=== PATIENT | male | born 2005 | race Caucasian/White ===

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

== ENCOUNTER 2025-07-08 17:35 | Emergency (ER) | payer OTHER, SELFPAY ==
[2025-07-08 17:45] VITALS: BP 134/77; PULSE 68; RESP 18; TEMP 36.4; O2SAT 99
--- NOTE | 2025-07-08 17:56 | XRR_ITS ---
PROCEDURE INFORMATION: Exam: XR Right Ankle Exam date and time: 07/08/2025 6:02 PM Age: 19 years old Clinical indication: Injury or trauma; Fall; Sprain or strain; Right; Injury date: Today; Injury details: Twisted ankle stepping out of truck missed step TECHNIQUE: Imaging protocol: Radiologic exam of the right ankle. Views: 3 or more views. COMPARISON: No relevant prior studies available. FINDINGS: Bones/joints: Normal. Soft tissues: Normal. XR/XR ankle RT min 3V* [id number] IMPRESSION: No acute findings.
--- NOTE | 2025-07-08 18:33 | XRR_ITS ---
PROCEDURE INFORMATION: Exam: XR Right Foot Exam date and time: 07/08/2025 6:35 PM Age: 19 years old Clinical indication: Injury or trauma; Fall; Sprain or strain and swelling (edema); Foot; Right; Ankle TECHNIQUE: Imaging protocol: Radiologic exam of the right foot. Views: 3 or more views. COMPARISON: CR (LOW EXM, ) 07/08/2025 6:02 PM FINDINGS: Bones/joints: Normal. Soft tissues: Normal. XR/XR foot RT min 3V* [id number] IMPRESSION: No acute findings.
--- NOTE | 2025-07-08 19:06 | ED_ITS ---
HPI - Extremity Problem General: Chief complaint: Extremity Injury, Lower Stated complaint: right ankle pain Time Seen by Provider: 07/08/25 17:52 History of Present Illness: Patient is a 89-year-old gentleman that presented to ED after missing a step and falling outside his truck. He complains of medial right foot/ankle pain. Associated symptoms: Deny chest pain, fever(s) or rash Related Data Home Medications ?Medication ?Instructions ?Recorded ?Confirmed dextroamphetamine-amphetamine 20 20 mg PO BID 02/15/24 03/06/24 mg tablet (Adderall) sertraline 50 mg tablet (Zoloft) 50 mg PO DAILY 03/06/24 Allergies Allergy/AdvReac Type Severity Reaction Status Date / Time meningococcal vaccine A and C Allergy ALGY-Difficulty Verified 07/08/25 17:47 Breathing Tetanus Vaccines and Toxoid Allergy ALGY-Difficulty Verified 07/08/25 17:47 Breathing Review of Systems General: Reports: 10 or more systems reviewed and unremarkable except in HPI and below Const: Denies: fever(s) or chills Eyes: Denies: change in vision or blurry vision ENMT: Reports: throat pain Card: Denies: chest pain or palpitations Resp: Denies: dyspnea or non-productive cough GI: Denies: abdominal pain, nausea or vomiting : Denies: flank pain or difficulty urinating Musc: Reports: extremity pain, extremity swelling, joint pain and joint swelling; Denies: neck pain Skin/Breast: Denies: rash or pruritus Neuro: Denies: headache(s) or numbness in extremities Psych: Denies: anxiety or depression PFS ED PFSH: Social History Smoking and tobacco/nicotine status: never used tobacco/nicotine Alcohol intake: never Substance/Drug Use: never Physical Exam Const: COMMON NORMALS: no acute distress, average body habitus and patient oriented x3 GENERAL APPEARANCE: cooperative, comfortable, well kempt and well developed ORIENTATION/CONSCIOUSNESS: Yes awake HENMT: COMMON NORMALS: normocephalic and atraumatic HEAD & SCALP: normocephalic and atraumatic Neck/C-Spine: COMMON NORMALS: full ROM and no lymphadenopathy Lymph: LYMPHATIC: no lymphadenopathy noted Chest: COMMONS NORMALS: normal inspection of the chest Cardio: COMMON NORMALS: regular rate and regular rhythm RATE: regular rate RHYTHM: regular rhythm GI: COMMON NORMALS: Normal to inspection, nondistended, normoactive bowel sounds present and Soft to palpation PALPATION: Yes Soft to palpation : COMMON NORMALS: Yes no CVA tenderness BLADDER/KIDNEY EXAM: Yes no CVA tenderness Back/Pelvis: COMMON NORMALS: no CVA tenderness Extremity: COMMON NORMALS: normal to inspection and no pedal edema (minimal medially) RIGHT LOWER EXTREMITY: Yes lower leg Right lower leg: Yes palpation (Pain medial meds that, as well as pain medially on superior extensor ) and Yes other (Pain with superior reticulum palpation medially) Neuro: COMMON NORMALS: patient oriented x3 Psych: APPEARANCE: Yes well kempt Skin: COMMON NORMALS: no rashes or lesions noted and no wounds GENERAL SKIN EXAM: no rashes or lesions noted Course Vital Signs: Vital signs: Vital Signs Temperature 97.6 F 07/08/25 17:45 Pulse Rate 59 L 07/08/25 19:33 Respiratory Rate 18 07/08/25 17:45 Blood Pressure 118/60 07/08/25 19:33 Pulse Oximetry 100 07/08/25 19:33 MDM - Extremity (Nontraumatic) Medical Decision Making Patient has negative x-ray of foot and ankle, however on physical examination has minimal swelling on this medial superior extensor reticulum with further concern of higher ankle sprain. I will place him in a ankle splint, he will continue to wear his steel and calcaneus boot to work, and call next week for follow-up with orthopedist. Patient states understanding of my concern of a higher ankle sprain even though his complaints are more medial mid foot consistent with more of a hAlagus longus sprain of the right foot. All of his questions answered and understanding. He will utilize Tylenol, and ibuprofen for pain. Lab Data Radiology Impressions Ankle X-Ray 07/08/25 17:56 IMPRESSION: No acute findings. Foot X-Ray 07/08/25 18:33 IMPRESSION: No acute findings. All radiology interpretation(s) finalized by discharge Discharge Plan Discharge Patient Disposition: Home Clinical Impression: Right ankle sprain Qualifiers: Encounter type: initial encounter Involved ligament of ankle: calcaneofibular ligament Qualified Code(s): S93.411A - Sprain of calcaneofibular ligament of right ankle, initial encounter Condition: Stable Prescriptions: No Action sertraline [Zoloft] 50 mg tablet 50 mg PO DAILY dextroamphetamine-amphetamine [Adderall] 20 mg tablet 20 mg PO BID Rx Instructions: administer doses at least 4-6 hours apart Discharge Orders: Discharge ED (Routine); Ordered 07/08/25 Ordered By: Ginger Gonzalez Referrals: Arnaud Goldstein DO [Physician, Orthopedics] Faby Mejía DO [Primary Care Provider, Family Practice] Discharge Diet: Usual diet Discharge Activity: Limit activity as instructed Patient Instructions: Ankle Strain (ED), Patient Portal & Nina Instructions Activity Restrictions/Additional Instructions: Wear ankle strap and ice x 2 weeks Tylenol and ibuprofen taken together every 6 hours as best for pain Increase activity as tolerated Given concern of higher ankle sprain, call orthopedics tomorrow for follow-up in 1 week and reevaluation. Referral has been made above. Return to ED for worsening pain, redness, temperature 100.4 ?F Stand Alone Forms: Work/School Release Print Language: [place] Coding Level of Care Code ED Electronics Department Manager for [employer]
[2025-07-08 19:33] VITALS: BP 118/60; PULSE 59; O2SAT 100
--- OUTSIDE RECORDS SUMMARY | 2025-07-09 18:19 | XMS_ITS | Encounter Summary ---
Author Organization [facility] Address [address] [place] [address] Care Team Providers Care Teaching Associate Name Role Phone Faby Mejía DO Primary Care Provider Encounter Details Date Type Department Care Team (Latest Contact Info) Description 12/11/2006 Outpatient Historical [facility] Medicine [place] [address] [facility] [address] [place] [phone] Jessika Alcazar NP NO ADDRESS ON FILE Acute Pharyngitis (Primary Dx); Acute Bronchitis; Respirat Syncytial Virus Social History Tobacco Use Types Packs/Day Years Used Date Smoking Tobacco: Never Assessed Sex and Gender Information Value Date Recorded Sex Assigned at Not on file Legal Sex Male 4:08 AM FULL TIME Gender Identity Not on file Sexual Orientation Not on file documented as of this encounter Plan of Treatment Not on file documented as of this encounter Visit Diagnoses Diagnosis Acute pharyngitis- Primary Acute bronchitis Respirat syncytial virus Respiratory syncytial virus (RSV) documented in this encounter Care Teams Teaching Associate Relationship Specialty Start Date End Date Faby Mejía DO [address] [place] [address] PCP - General Family Practice 03/20/13 documented as of this encounter
--- OUTSIDE RECORDS SUMMARY | 2025-07-09 18:19 | XMS_ITS | Encounter Summary ---
Author Organization [facility] Address [address] [place] [address] Care Team Providers Care Freight And Passenger Agent Name Role Phone Faby Mejía DO Primary Care Provider Encounter Details Date Type Department Care Team (Latest Contact Info) Description 08/31/2006 Outpatient Historical 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
--- OUTSIDE RECORDS SUMMARY | 2025-07-09 18:19 | XMS_ITS | Encounter Summary ---
Author Organization [facility] Address [address] [place] [address] Care Team Providers Care Mold Carpenter Name Role Phone Faby Mejía DO Primary Care Provider Encounter Details Date Type Department Care Team (Latest Contact Info) Description 12/18/2006 Outpatient Historical [facility] Medicine [place] [address] [facility] [address] [place] [phone] Jessika Alcazar NP NO ADDRESS ON FILE Respirat Syncytial Virus (Primary Dx); Unspecified Conjunctivitis Social History Tobacco Use Types Packs/Day Years Used Date Smoking Tobacco: Never Assessed Sex and Gender Information Value Date Recorded Sex Assigned at Not on file 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
--- OUTSIDE RECORDS SUMMARY | 2025-07-09 18:20 | XMS_ITS | Encounter Summary ---
Author Organization [facility] Address [address] [place] [address] Care Team Providers Care Brake Lining Curer Name Role Phone Faby Mejía DO Primary Care Provider [phone] Encounter Details Date Type Department Care Team (Late st Contact Info) Description 07/02/2025 External Device Data [facility] ABSTRACTION Provider, Abstract NO ADDRESS ON FILE Social History Tobacco Use Types Packs/Day Years Used Date Smoking Tobacco: Never Passive Smoke Exposure: Never Smokeless Tobacco: Never Alcohol Use Standard Drinks/Week Comments Never 0 (1 standard drink = 0.6 oz pur e alcohol) Sex and Gender Information Value Date Recorded Sex Assigned at Not on file 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
--- OUTSIDE RECORDS SUMMARY | 2025-07-09 18:20 | XMS_ITS | Encounter Summary ---
Author Organization [facility] Address [address] [place] [address] Care Team Providers Care Timing Machine Operator Name Role Phone Faby Mejía DO Primary Care Provider Encounter Details Date Type Department Care Team (Latest Contact Info) Description 08/01/2006 Outpatient Historical [facility] Family Medicine [place] [address] [facility] [address] [place] [phone] Jessika Alcazar NP NO ADDRESS ON FILE Acute Pharyngitis (Primary Dx); Teething Syndrome Social History Tobacco Use Types Packs/Day Years Used Date Smoking Tobacco: Never Assessed Sex and Gender Information Value Date Recorded Sex Assigned at Not on file 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
--- OUTSIDE RECORDS SUMMARY | 2025-07-09 18:20 | XMS_ITS | Encounter Summary ---
Author Organization [facility] Address [address] [place] [address] Care Team Providers Care Sewer And Inspector Name Role Phone Faby Mejía Primary Care Provider Encounter Details Date Type Department Care Team (Late st Contact Info) Description 06/17/2008 Outpatient Historical [facility] Services [address] 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 Gender Identity Not on file Sexual Orientation Not on file documented as of this encounter Plan of Treatment Not on file documented as of this encounter Procedures Procedure Name Priority Date/Time Associated Diagnosis Comments XR UPR GI W ESOPHOGRAM Routine 06/26/2008 8:43 AM CDT US RENAL Routine 06/26/2008 8:20 AM CDT documented in this encounter Results * XR UPR GI W ESOPHOGRAM (06/26/2008 8:43 AM CDT) Anatomical Region Laterality Modality Abdomen Other 06/26/2008 8:43 AM CDT Narrative 06/26/2008 3:10 PM CDT Exam: Upper GI/Esophagram Date/Time of Exam: Jun 26, 2008 8:43:29 AM History: vomiting. Comparison: None. Findings: The images and findings were reviewed with Dr. Loving prior to the time of dictation. Patient was given barium from a cup. AP and lateral views of the esophagus show no stricture, fistula, or abnormal vascular impression. The stomach is grossly unremarkable. The gastric outlet, pylorus, and duodenal sweep are within normal limits. Ligament of Treitz in normal position to the left the spine. Impression: Unremarkable pediatric upper GI. - Dictated By: Rogelio Sauer Electronically Signed By: Broderick Loving M.D. Date Signed: 06/26/08 Procedure Note Broderick Loving W - 06/26/2008 Exam: Upper GI/Esophagram Date/Time of Exam: Jun 26, 2008 8:43:29 AM History: vomiting. Comparison: None. Findings: The images and findings were reviewed with Dr. Loving prior tothe time of dictation. Patient was given barium from a cup. AP and lateral views of the esophagusshow no stricture, fistula, or abnormal vascular impression. The stomach is grossly unremarkable. Thegastric outlet, pylorus, and duodenal sweep are within normal limits. Ligament of Treitz in normalposition to the left the spine. Impression: Unremarkable pediatric upper GI. - Dictated By: Rogelio Sauer Electronically Signed By: Broderick Loving M.D. Date Signed: 06/26/08 us Ezio Boyd MD DIAGNOSTIC IMAGING ORDERABL ES Final Result * US RENAL (06/26/2008 8:20 AM CDT) Anatomical Region Laterality Modality Abdomen Other 06/26/2008 8:20 AM CDT Narrative 06/26/2008 9:07 PM CDT Bilateral Renal Ultrasound Jun 26, 2008 8:20:56 AM . Comparisons: None. Clinical History: Vomiting. Findings: Right kidney measures 6.7 cm in length while the left kidney measures 6.4 cm in length. There is no evidence for hydronephrosis, solid renal mass, renal calculi or perinephric fluid collections. Impressions: 1. Unremarkable bilateral renal ultrasound. - Dictated By: Charanjit Franco M.D., Ph.D. Electronically Signed By: Charanjit Franco M.D., Ph.D. Date Signed: 06/26/08 [facility] Procedure Note Charanjit Franco - 06/26/2008 Bilateral Renal Ultrasound Jun 26, 2008 8:20:56 AM . Comparisons: None. Clinical History: Vomiting. Findings: Right kidney measures 6.7 cm in length while the left kidneymeasures 6.4 cm in length. There is no evidence for hydronephrosis, solid renal mass, renal calculi orperinephric fluid collections. Impressions: 1. Unremarkable bilateral renal ultrasound. - Dictated By: Charanjit Franco M.D., Ph.D. Electronically Signed By: Charanjit Franco M.D., Ph.D. Date Signed: 06/26/08 [facility] Ezio Boyd MD ORDERABLES Final Resul t documented in this encounter Visit Diagnoses Not on filedocumented in this encounter Care Teams Sewer And Inspector Relationship Specialty Start Date End Date Faby Mejía DO [address] [place] [address] PCP - General Family Practice 03/20/13 documented as of this encounter
--- OUTSIDE RECORDS SUMMARY | 2025-07-09 18:20 | XMS_ITS | Encounter Summary ---
Author Organization [facility] Address [address] [place] [address] Care Team Providers Care Skinner Pelts Name Role Phone Faby Mejía DO Primary Care Provider [phone] Encounter Details Date Type Department Care Team (Latest Contact Info) Description 08/08/2006 Outpatient Historical [facility] Family Medicine [place] [address] [facility] [address] [place] [address] Lynn Anders, ALIGNMENT SPECIALIST [address] [place] [address] Cellulitis and Abscess of Upper Arm and Forearm (Primary Dx) Social History Tobacco Use Types Packs/Day Years Used Date Smoking Tobacco: Never Assessed Sex and Gender Information Value Date Recorded Sex Assigned at Not on file 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
--- OUTSIDE RECORDS SUMMARY | 2025-07-09 18:20 | XMS_ITS | Encounter Summary ---
Author Organization 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
--- OUTSIDE RECORDS SUMMARY | 2025-07-09 18:20 | XMS_ITS | Encounter Summary ---
Author Organization [facility] Address [address] [place] [address] Care Team Providers Care Catering Sales Manager Name Role Phone Faby Mejía DO Primary Care Provider [phone] Encounter Details Date Type Department Care Team (Latest Contact Info) Description 2005 Outpatient Historical [facility] Medicine [place] [address] [phone] Miriam Wilkerson MD [address] [place] [phone] Routine child health exam (Primary Dx) Social History Tobacco Use Types Packs/Day Years Used Date Smoking Tobacco: Never Assessed Sex and Gender Information Value Date Recorded Sex Assigned at Not on file 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
--- OUTSIDE RECORDS SUMMARY | 2025-07-09 18:20 | XMS_ITS | Clinical Summary ---
Author Organization [facility] Address [address] [place] [address] Care Team Providers Care Ammonium Nitrate Crystallizer Name Role Phone Faby Mejía Pedrito DO Primary Care Provider Allergies Active Allergy Reactions Criticality Noted Date Comments Diphtheria,Pertussis (Acell) ,Tetanus,Polio Vaccine Swelling Low 04/20/2011 Medications acetaminophen (CHILDREN'S TYLENOL) 160 mg/5 mL Oral Susp Take by mouth every 4 hours as needed. Active cetirizine (ZyrTEC) 10 mg tabletIndications: Mild intermittent reactive airway disease without complication Take 1 Tablet (10 mg) by mouth daily. 30 Tablet 11 8 Active ibuprofen (CHILD IBUPROFEN) 100 mg/5 mL suspension Take 20 mL (400 mg) by mouth every 6 hours as needed for Pain, Mild or Temperature. 237 mL 2 8 Active EPINEPHrine (EPIPEN) 0.3 mg/0.3 mL Auto-Injector INJECT 0.3ML (0.3MG) INTRAMUSCULA RLY. REPEAT IF NEEDED IN 10 MINUTES 1 Package 1 9 Active montelukast (SINGULAIR) 5 mg Tablet, ChewableIndication s:Allergic rhinitis due to pollen, unspecified seasonality Take 1 Tablet (5 mg) by mouth daily at bedtime. 90 Tablet 3 03/04/2020 4:12 PM CDT 0 Active fexofenadine (JASKARAN) 180 mg tabletIndications: Allergic rhinitis due to pollen, unspecified seasonality Take 1 Tablet (180 mg) by mouth daily. 30 Tablet 2 0 Active amitriptyline (ELAVIL) 25 mg tablet Take 1-2 Tablets (25-50 mg) by mouth daily at bedtime. 180 Tablet 1 05/27/2020 4:21 PM CDT 0 Active methylphenidate HCl (Ritalin LA) 40 mg Long Acting capsuleIndications :ADHD (attention deficit hyperactivity disorder), predominantly hyperactive impulsive type Take 1 Capsule (40 mg) by mouth daily. Max Daily Amount: 40 mg 30 Capsule 05/26/2021 11:47 AM CDT 1 Active methylphenidate HCl (Ritalin) 10 mg tabletIndications: ADHD (attention deficit hyperactivity disorder), predominantly hyperactive impulsive type Take 1 Tablet (10 mg) by mouth daily at noon. Max Daily Amount: 10 mg 30 Tablet 05/26/2021 11:47 AM CDT 1 Active methylphenidate HCl (Ritalin LA) 40 mg Long Acting capsuleIndications :ADHD (attention deficit hyperactivity disorder), predominantly hyperactive impulsive type Take 1 Capsule (40 mg) by mouth daily. Do not fill until 06/09/2021 Max Daily Amount: 40 mg 30 Capsule 1 Active methylphenidate HCl (Ritalin LA) 40 mg Long Acting capsuleIndications :ADHD (attention deficit hyperactivity disorder), predominantly hyperactive impulsive type Take 1 Capsule (40 mg) by mouth daily. Do not fill until 07/10/2021 Max Daily Amount: 40 mg 30 Capsule 1 Active methylphenidate HCl (Ritalin) 10 mg tabletIndications: ADHD (attention deficit hyperactivity disorder), predominantly hyperactive impulsive type Take 1 Tablet (10 mg) by mouth daily at noon. Max Daily Amount: 10 mg 30 Tablet 1 Active methylphenidate HCl (Ritalin) 10 mg tabletIndications: ADHD (attention deficit hyperactivity disorder), predominantly hyperactive impulsive type Take 1 Tablet (10 mg) by mouth daily at noon. Max Daily Amount: 10 mg 30 Tablet 1 Active Active Problems Problem Noted Date Diagnosed Date ADHD (attention deficit hype ractivity disorder), predominantly hyperactive impulsive type 05/27/2015 Innocent heart murmur 06/16/2010 Reactive airway disease 10/19/2009 Immunizations Immunization Administration Dates Next Due (GARDASIL 9)(9-45 YRS) HUMAN PAPILLOMAVIRUS VACCINE, TYPES 6, 11, 16, 18, 31, 33, 45, 52, 58, NONAVALENT (9VHPV), 2 OR 3 DOSE, IM 06/18/2019 (M-M-R II/PRIORIX)(12 MO UP) MEASLES, MUMPS AND RUBELLA VIRUS VACCINE, 0.5 ML IM/SUBCUT 02/27/2007 (VARIVAX)(12 MOS UP)VARICELL A VIRUS VACCINE (PF) 0.5 ML, SUB CUT 06/16/2010,01/23/2007 DTaP Hep B IPV Combined Vacc ine IM VFC 11/28/2006,09/19/2006 DTaP IPV Vaccine 4-6 Yr IM VFC 04/12/2011 Dt Dtp Dtap Vaccine 07/17/2007, 7,09/19/2006,05/27 HIB, Unspecified Formulation 07/17/2007,01/02/20 07,08/15/2006 Hepatitis B Vaccine 11/28/2006,09/19/2006,2005 Hepatitis B Vaccine Ped Adol IM 3 Dose VFC 07/11/2006 Hib PRP-T Vaccine IM 4 Dose VFC 07/17/2007,01/02,08/15/2006 INFLUENZA VACCINE QUADRIVALE NT 3 YR UP PF IM 09/17/2020,10/04/2019,10/09/2018,09/27,08/25/2016,10/14/2015 IPV/OPV 11/28/2006,09/19/2006,06/27/2006 Influenza Vaccine Nasal 09/12/2014,09/04,10/11/2012,08/27 Influenza Vaccine Split 3+ Yrs PF IM 10/19/2011, 09/14/2011 09/14/2012 MMR Vaccine SQ VFC 04/12/2011 Pneumococcal 7-valent conjug ate vaccine IM 03/27/2007,01/02/2007,11/28/2006,08/28 Family History Medical History Relation Name Comments Healthy Brother Healthy Father Hypertension Father Diabetes Maternal Grandfather Healthy Maternal Grandfather High Cholesterol Maternal Grandfather Healthy Maternal Grandmother Heart Disease Maternal Grandmother High Cholesterol Maternal Grandmother Hypertension Maternal Grandmother Healthy Mother Heart Disease Paternal Grandfather Stroke Paternal Grandfather Hypertension Paternal Grandmother Breast Cancer Neg Hx Colon Cancer Neg Hx Relation Name Status Comments Brother Alive Father Alive Maternal Grandfather Maternal Grandmother Mother Alive Paternal Grandfather Paternal Grandmother Social History Tobacco Use Types Packs/Day Years Used Date Smoking Tobacco: Never Smokeless Tobacco: Never Sex and Gender Information Value Date Recorded Sex Assigned at Not on file 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 Gender Identity Not on file Sexual Orientation Not on file Occupation Industry Job Start Date Job End Date Not on file Not on file Not on file Not on file Last Filed Vital Signs Vital Sign Reading Time Taken Comments Blood Pressure 94/70 12/15/2020 3:58 PM SLUNK SKIN CURER Pulse 87 05/10/2021 3:24 PM CDT Temperature 37 C (98.6 F) 05/10/2021 3:24 PM CDT Respiratory Rate 18 05/10/2021 3:24 PM CDT Oxygen Saturation 98% 05/10/2021 3:24 PM CDT Inhaled Oxygen Concentration - - Weight 65.8 kg (145 lb) 05/10/2021 3:24 PM CDT Height 162.6 cm (5' 4 ) 05/10/2021 3:24 PM CDT Body Mass Index 24.89 05/10/2021 3:24 PM CDT Body Mass Index Percentile 89.70% 05/10/2021 3:2 4 PM CDT Growth Chart: CDC (Boys, 2-2 0 Years) Plan of Treatment Health Maintenance Due Date Last Done Comments CHLAMYDIA SCREENING (ANNUAL) 11-24 YEARS 2016 DTAP/TDAP/TD VACCINES (6 - Tdap) 2016 04/12/2011, 07/17/2007, 11/28/2006, Additional history exists HPV VACCINES (2 - Male 2-dos e series) 12/19/2019 06/18/2019 Preventative Visit- Commercial 11/27/2024 0 12/16/2021, 06/18/2019, 06/06/2018, Additional history exists INFLUENZA VACCINE (#1) 2025 0, 10/04/2019, 10/09/2018, Additional history exists HEPATITIS B VACCINES Completed 11/28/2006, 11/28/2006, 09/19/2006, Additional history exists Insurance RX MEDIMPACT Member Subscriber Plan / Payer (Ef fective for All Dates) Name:HaqGrazyna dumontshabbir Major Relation to Subscriber:Child Name:Michael Haq Payer ID:Not on file Group ID:[id number] Type:RX Commercial Address: [place], [place] Care Teams Ammonium Nitrate Crystallizer Relationship Specialty Start Date End Date Faby Mejía DO [address] [place] [address] PCP - General Family Practice 03/20/13
--- OUTSIDE RECORDS SUMMARY | 2025-07-09 18:20 | XMS_ITS | Encounter Summary ---
Author Organization [facility] Address [address] [place] [address] Care Team Providers Care Biology Teacher Name Role Phone Faby Mejía DO Primary Care Provider Encounter Details Date Type Department Care Team (Latest Contact Info) Description 2005 Outpatient Historical [facility] [place] [address] [phone] Miriam Wilkerson MD [address] [place] [address] PYOGENIC GRANULOMA (Primary Dx) Social History Tobacco Use Types Packs/Day Years Used Date Smoking Tobacco: Never Assessed Sex and Gender Information Value Date Recorded Sex Assigned at Not on file 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
--- OUTSIDE RECORDS SUMMARY | 2025-07-09 18:20 | XMS_ITS | Clinical Summary ---
Author Organization [facility] Address [address] [place] [address] Care Team Providers Care Primary Teacher Name Role Phone Faby Mejía Primary Care Provider Allergies Active Allergy Reactions Criticality Noted Date Comments Diphtheria,Pertussis (Acell) ,Tetanus,Polio Vaccine Swelling Low 04/20/2011 Medications cetirizine (ZyrTEC) 10 mg tablet Take 10 mg by mouth daily. Alternates or takes with hernán before monthly allergy injection. Active methylphenidate HCl (Ritalin LA) 30 mg Long Acting capsuleIndication s:ADHD (attention deficit hyperactivity disorder), predominantly hyperactive impulsive type Take 1 Capsule (30 mg) by mouth daily in the morning. Max Daily Amount: 30 mg 30 Capsule 5 Active hydrOXYzine HCL (ATARAX) 10 mg tablet Take 1 Tablet (10 mg) by mouth 3 times daily as needed for Itching or Anxiety. 90 Tablet 2 5 Active Active Problems Problem Noted Date Diagnosed Date ADHD (attention deficit hype ractivity disorder), predominantly hyperactive impulsive type 05/27/2015 Innocent heart murmur 06/16/2010 Reactive airway disease 10/19/2009 Encounters Date Type Department Care Team Description 07/02/2025 External Device Data [facility]CTION Provider, Abstract 06/24/2025 External Device Data [facility] Provider, Abstract 06/11/2025 External Device Data [facility] Provider, Abstract 06/11/2025 External Device Data [facility] Provider, Abstract 05/27/2025 External Device Data [facility] Provider, Abstract 05/06/2025 External Device Data [facility] Provider, Abstract 04/29/2025 External Device Data [facility] Provider, Abstract 04/29/2025 External Device Data [facility] Provider, Abstract 04/22/2025 External Device Data [facility] Provider, Abstract 04/17/2025 External Device Data [facility] Provider, Abstract 04/16/2025 External Device Data [facility] Provider, Abstract 04/15/2025 External Device Data [facility]STRA[facility] Provider, Abstract 04/11/2025 4:00 PM CDT Office Visit [facility] [address] [place] [address] Bluntfebruary, DIESEL DINKEY OPERATOR ADHD (attention deficit hyperactivity disorder), predominantly hyperactive impulsive type (Primary Dx); Generalized anxiety disorder 04/10/2025 Telephone [facility] [address] [place] [address] Bluntfebruary, DIESEL DINKEY OPERATOR reschedule from Last 3 Months Immunizations Immunization Administration Dates Next Due (ACTHIB/HIBERIX)(2 MOS-5 YRS /6 WKS-4 YRS) HAEMOPHILUS INFLUENZAE TYPE B VACCINE (HIB), PRP-T CONJUGATE, 4 DOSE, 0.5 ML IM 07/17/2007,01/02/2007,08/15/2006 (GARDASIL 9)(9-45 YRS) HUMAN PAPILLOMAVIRUS VACCINE, TYPES 6, 11, 16, 18, 31, 33, 45, 52, 58, NONAVALENT (9VHPV), 2 OR 3 DOSE, IM 12/16/2021,06/18/2019 (INFANRIX)(6 WKS-6 YRS) DIPT HERIA, TETANUS TOXOIDS, AND ACCELLULAR PERTUSSIS VACCINE (DTAP), 0.5 ML IM 07/17/2007,11/28/2006,09/19/2006,06/13 (IPOL)(6 WKS AND UP) POLIOVI MICKEY VACCINE, INACTIVATED (IPV), 3 DOSE, SUBCUT OR IM 11/28/2006,09/19/2006,06/27/2006 (KINRIX/QUADRACEL)(4 - 6 YRS ) DIPHTHERIA, TETANUS TOXOIDS AND ACELLULAR PERTUSSIS VACCINE, POLIO, INACTIVATED (DTAP-IPV) (PF) IM 04/12/2011 (M-M-R II/PRIORIX)(12 MO UP) MEASLES, MUMPS AND RUBELLA VIRUS VACCINE, 0.5 ML IM/SUBCUT 04/12/2011,02/27/2007 (PEDIARIX)(6 WKS-6 YRS) DIPT HERIA, TETANUS TOXOIDS, ACELLULAR PERTUSSIS, HEPATITIS B, AND INACTIVATED POLIOVIRUS VACCINE ([id number]), 0.5ML, IM 11/28/2006,09/19/2006 (PFIZER)(12 YR UP) COVID-19 VACCINE - EMERGENCY USE AUTHORIZATION, MRNA, [id number](PF) 30 MCG/0.3 ML IM SUSP 06/28/2021,06/11/2021 (RECOMBIVAX HB/ENGERIX-B)(0- 19 YRS) HEPATITIS B VACCINE 5 MCG/0.5 ML OR 10 MCG/0.5 ML PED OR ADOL 3 DOSE (PF), IM 07/11/2006 (VARIVAX)(12 MOS UP)VARICELL A VIRUS VACCINE (PF) 0.5 ML, SUB CUT 06/16/2010,01/23/2007 DTaP Hep B IPV Combined Vaccine IM VFC 7,09/19/2006 DTaP IPV Vaccine 4-6 Yr IM VFC 04/12/2011 Dt Dtp Dtap Vaccine 07/17/2007, 7,09/19/2006,06/13 HIB, Unspecified Formulation 07/17/2007,01/02/20 07,08/15/2006 Hepatitis B Vaccine 11/28/2006,09/19/2006,2005 Hepatitis B Vaccine Ped Adol IM 3 Dose VFC 07/11/2006 Hib PRP-T Vaccine IM 4 Dose VFC 07/17/2007,01/02,08/15/2006 INFLUENZA VACCINE QUADRIVALE NT 3 YR UP PF IM 09/17/2020,10/04/2019,10/09/2018,10/10,08/25/2016,10/14/2015 INFLUENZA VACCINE QUADRIVALE NT 6 MOS UP PF IM 11/01/2021,09/17/2020,10/04/2019,10/09,10/10/2017,08/25/2016,10/14/2015 IPV/OPV 11/28/2006,09/19/2006,06/27/2006 Influenza Vaccine Nasal 09/12/2014,09/04,10/11/2012,09/10 Influenza Vaccine Split 3+ Yrs PF IM 10/19/2011, 09/14/2011 Influenza Vaccine Tri Split 4+ Pf Im 10/19/2011, 09/14/2011 MMR Vaccine SQ VFC 04/12/2011 Pneumococcal 7-valent conjug ate vaccine IM 03/27/2007,01/02/2007,11/28/2006,09/19 Family History Medical History Relation Name Comments [...] Passive Smoke Exposure: Never Smokeless Tobacco: Never Tobacco Cessation:Counseling Given: No Alcohol Use Standard Drinks/Week Comments Never 0 (1 standard drink = 0.6 oz pur e alcohol) Sex and Gender Information Value Date Recorded Sex Assigned at Not on file 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 Gender Identity Not on file Sexual Orientation Not on file Last Filed Vital Signs Vital Sign Reading Time Taken Comments Blood Pressure 110/64 04/11/2025 4:04 PM CDT Pulse 97 04/11/2025 4:04 PM CDT Temperature 37.1 C (98.8 F) 04/11/2025 4:04 PM CDT Respiratory Rate 18 04/11/2025 4:04 PM CDT Oxygen Saturation 97% 04/11/2025 4:04 PM CDT Inhaled Oxygen Concentration - - Weight 103 kg (227 lb) 04/11/2025 4:04 PM CDT Height 180.3 cm (5' 11 ) 04/11/2025 4:04 PM CDT Body Mass Index 31.66 04/11/2025 4:04 PM CDT Plan of Treatment Health Maintenance Due Date Last Done Comments CHLAMYDIA SCREENING (ANNUAL) 11-24 YEARS 2016 DTAP/TDAP/TD VACCINES (6 - Tdap) 2016 04/12/2011, 04/12/2011, 07/17/2007, Additional history exists COVID-19 Vaccine (3 - 2023-2 5 season) 2024 06/28/2021, 06/11/2021 Preventative Visit- Commercial 11/27/2024 0 12/16/2021, 06/18/2019, 06/06/2018, Additional history exists INFLUENZA VACCINE (#1) 2025 , 11/01/2021, 09/17/2020, Additional history exists HEPATITIS B VACCINES Completed 11/28/2006, 11/28/2006, 11/28/2006, Additional history exists HPV VACCINES Completed 12/16/2021, 06/18/2019 Insurance [employer] [facility] [employer] [id number] * Guarantor: MICHAEL HAQ Account Type Relation to Patient Date of Phone Billing Address Personal/Family [phone] [address] [address] [facility] [employer] Care Teams Primary Teacher Relationship Specialty Start Date End Date Faby Mejía DO [address] [place] [address] PCP - General Family Practice 03/20/13
--- OUTSIDE RECORDS SUMMARY | 2025-07-09 18:20 | XMS_ITS | Encounter Summary ---
Author Organization [facility] Address [address] [place] [address] Care Team Providers Care Granular Operator Name Role Phone Faby Mejía DO Primary Care Provider Encounter Details Date Type Department Care Team (Latest Contact Info) Description 01/24/2007 Outpatient Historical [facility]- [address] [place] [address] Jessika Alcazar NP NO ADDRESS ON FILE Fever (Primary Dx) Social History Tobacco Use Types Packs/Day Years Used Date Smoking Tobacco: Never Assessed Sex and Gender Information Value Date Recorded Sex Assigned at Not on file 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
== END 2025-07-08 19:34 | disposition home or self-care (01) ==
PROVIDERS: Emergency Provider Physician Assistant; PCP Family Medicine
DX: S93.401A Sprain of unspecified ligament of right ankle, initial encounter (principal); V58.4XXA Person boarding or alighting a pick-up truck or van injured in noncollision transport accident, initial encounter
CPT/HCPCS: 73610; 73630; 99283